=== PATIENT | male | born 1990 | race Hispanic/Latino ===

== ENCOUNTER 2022-01-13 00:11 | Emergency (ER) | payer SELFPAY ==
[2022-01-13] MEDS ORDERED: THIAMINE 200 MG/2 ML INJ ONE (01:49)
[2022-01-13] MEDS ORDERED: ONDANSETRON 4 MG/2 ML VIAL ONE (01:50)
[2022-01-13] MEDS ORDERED: MULTIVITAMINS 10 ML VIAL (INJ) IV ONE (01:50)
[2022-01-13] MEDS ORDERED: MORPHINE 4 MG/ML SYR ONE (01:50)
[2022-01-13] MEDS ORDERED: FOLIC ACID 5 MG/ML VIAL ONE (01:51)
[2022-01-13] MEDS ORDERED: NA CHLORIDE 0.9% 1,000 ML ONE (01:51)
[2022-01-13 02:20] LABS: Absolute Lymphocytes (CBC) 2.7 K/uL (0.7-4.9); Hematocrit 52.4 % (39.6-49.0); Lymphocytes % 22.8 % (15.3-44.8); MPV 8.1 fL (7.6-11.3); RBC Red Blood Cell Count 5.74 M/uL (4.33-5.43)
[2022-01-13 02:24] LABS: Protime INR 1.04
[2022-01-13 02:40] LABS: Albumin 4.6 g/dL (3.4-5.0); Bilirubin Direct 0.2 mg/dL (0-0.2); Bilirubin Total 0.9 mg/dL (0.2-1.0); Magnesium 2.2 mg/dL (1.8-2.4); Potassium 4.5 mmol/L (3.5-5.1); Protein, Total 8.7 g/dL (6.4-8.2); Troponin High Sensitivity 9.5 pg/mL (<58.9)
[2022-01-13 03:34] LABS: Barbiturates NEGATIVE (NEGATIVE); Benzodiazepines NEGATIVE (NEGATIVE); Cocaine ND (NEGATIVE); METHAMPHETAM NEGATIVE (NEGATIVE); Methadone NEGATIVE (NEGATIVE); Opiates POSITIVE (NEGATIVE); Phencyclidine NEGATIVE (NEGATIVE); THC Cannibis POSITIVE (NEGATIVE)
--- NOTE | 2022-01-13 05:46 | EDPHYS ---
Physician Documentation [facility] Name: Jairon Anderson Age: 31 yrs Sex: Male : 1990 Arrival Date: 01/13/2022 Time: 00:23 Bed 17 Private MD: ED Physician Roby Delgado HPI: 01/13 00:50 This 31 yrs old Male presents to ER via EMS with complaints of Abdominal mh7 pain.Constipation. 00:50 The patient presents with abdominal pain in the left upper quadrant, in the left lower mh7 quadrant. Onset: The symptoms/episode began/occurred 2 day(s) ago. The symptoms do not radiate. 00:50 Associated signs and symptoms: Pertinent positives: constipation, Pertinent negatives: mh7 nausea, vomiting, and diarrhea, anorexia, blood in stools, chest pain, diarrhea, dysuria, fever, headache, hematuria, nausea, palpitations, shortness of breath, testicular pain, vomiting, vomiting blood. 00:50 The symptoms are described as intermittent, vague, waxing/waning. Modifying factors: mh7 The symptoms are alleviated by nothing, the symptoms are aggravated by nothing. Severity of pain: At its worst the pain was moderate yesterday, in the emergency department the pain is unchanged. Historical: - Allergies: 00:27 Tylenol; vc1 00:27 Ibuprofen; vc1 - Home Meds: 00:27 None [Active]; vc1 - PMHx: 00:27 Hypertensive disorder; Asthma; Bipolar disorder; ADHD; vc1 - Immunization history:: Adult Immunizations unknown, Client reports having NOT received the Covid vaccine. ROS: 00:50 Constitutional: Negative for fever, chills, and weight loss, Eyes: Negative for injury, mh7 pain, redness, and discharge, ENT: Negative for injury, pain, and discharge, Neck: Negative for injury, pain, and swelling, Cardiovascular: Negative for chest pain, palpitations, and edema, Respiratory: Negative for shortness of breath, cough, wheezing, and pleuritic chest pain, Back: Negative for injury and pain, : Negative for injury, bleeding, discharge, and swelling, MS/Extremity: Negative for injury and deformity, Skin: Negative for injury, rash, and discoloration, Neuro: Negative for headache, weakness, numbness, tingling, and seizure, Psych: Negative for depression, anxiety, suicide ideation, homicidal ideation, and hallucinations, Allergy/Immunology: Negative for hives, rash, and allergies, Endocrine: Negative for neck swelling, polydipsia, polyuria, polyphagia, and marked weight changes, Hematologic/Lymphatic: Negative for swollen nodes, abnormal bleeding, and unusual bruising. Exam: 00:50 Head/Face: Normocephalic, atraumatic. Eyes: Pupils equal round and reactive to light, mh7 extra-ocular motions intact. Lids and lashes normal. Conjunctiva and sclera are non-icteric and not injected. Cornea within normal limits. Periorbital areas with no swelling, redness, or edema. Neck: Trachea midline, no thyromegaly or masses palpated, and no cervical lymphadenopathy. Supple, full range of motion without nuchal rigidity, or vertebral point tenderness. No Meningismus. Chest/axilla: Normal chest wall appearance and motion. Nontender with no deformity. No lesions are appreciated. Respiratory: Lungs have equal breath sounds bilaterally, clear to auscultation and percussion. No rales, rhonchi or wheezes noted. No increased work of breathing, no retractions or nasal flaring. 00:50 Back: No spinal tenderness. No costovertebral tenderness. Full range of motion. Skin: Warm, dry with normal turgor. Normal color with no rashes, no lesions, and no evidence of cellulitis. MS/ Extremity: Pulses equal, no cyanosis. Neurovascular intact. Full, normal range of motion. Neuro: Awake and alert, GCS 15, oriented to person, place, time, and situation. Cranial nerves II-XII grossly intact. Motor strength 5/5 in all extremities. Sensory grossly intact. Cerebellar exam normal. Normal gait. Psych: Awake, alert, with orientation to person, place and time. Behavior, mood, and affect are within normal limits. 00:50 Constitutional: The patient appears in no acute distress, alert, awake, anxious. 00:50 Cardiovascular: Rate: tachycardic, Rhythm: regular, Pulses: no pulse deficits are appreciated, Heart sounds: normal, normal S1and S2, Edema: is not appreciated, JVD: is not appreciated. 00:50 Abdomen/GI: Inspection: abdomen appears normal, Bowel sounds: normal, in all quadrants, Palpation: moderate abdominal tenderness, in the left upper quadrant, mass, is not appreciated, rebound tenderness, is not appreciated, voluntary guarding, is not appreciated, involuntary guarding, is not appreciated, no appreciated organomegaly, Rectal exam: the exam is deferred, because of patient request, Indicators: McBurney's point is not tender, Parks's sign is negative, Rovsing's sign is negative, Obturator sign is negative, Psoas sign is negative, Liver: no appreciated palpable abnormalities, Hernia: not appreciated. Vital Signs: 00:26 BP 159 / 123; Pulse 112; Resp 18; Temp 98.5; Pulse Ox 100% ; Weight 74.84 kg; Height 5 vc1 ft. 4 in. (162.56 cm); Pain 6/10; 01:00 BP 164 / 133; Pulse 93; Resp 18; Pulse Ox 97% ; vc1 02:00 BP 177 / 125; Pulse 104; Resp 20; Pulse Ox 98% ; vc1 02:53 BP 164 / 109; Pulse 105; Resp 17; Pulse Ox 97% on R/A; ll3 04:00 BP 143 / 105; Pulse 80; Resp 20; Pulse Ox 98% ; vc1 05:00 BP 138 / 110; Pulse 78; Resp 24; Pulse Ox 97% ; vc1 05:51 BP 157 / 110; Pulse 77; Resp 20; Pulse Ox 98% ; vc1 00:26 Body Mass Index 28.32 (74.84 kg, 162.56 cm) vc1 MDM: 05:44 Differential diagnosis: bowel obstruction, diverticulitis, gastritis, gastroesophageal mh7 reflux disease, non-specific abd pain, Peptic Ulcer Disease, Pyelonephritis, Ureterolithiasis. Data reviewed: vital signs, nurses notes, lab test result(s), CBC, electrolytes, urinalysis, EKG, radiologic studies, CT scan, plain films. Data interpreted: Pulse oximetry: on room air is 97 %. Interpretation: normal. Counseling: I had a detailed discussion with the patient and/or guardian regarding: the historical points, exam findings, and any diagnostic results supporting the discharge/admit diagnosis, the presence of at least one elevated blood pressure reading (>120/80) during this emergency department visit, lab results, radiology results, the need for outpatient follow up, to return to the emergency department if symptoms worsen or persist or if there are any questions or concerns that arise at home. Response to treatment: the patient's symptoms have resolved after treatment, the patient's blood pressure is in an acceptable range, mental status has returned to baseline, the patient no longer shows bradycardia, the patient is not short of breath, the patient is not tachycardic, the patient's pain is gone, the patient's temperature has normalized, the patient is now symptom free, patient is well hydrated. 05:45 Patient medically screened. 01/13 01:01 Order name: Basic Metabolic Panel; Complete Time: 02:48 01/13 01:01 Order name: CBC with Diff; Complete Time: 02:48 01/13 01:01 Order name: LFT's; Complete Time: 02:48 01/13 01:01 Order name: Magnesium; Complete Time: 02:48 01/13 01:01 Order name: NT PRO-BNP; Complete Time: 02:48 01/13 01:01 Order name: PT-INR; Complete Time: 02:48 01/13 01:01 Order name: Troponin HS; Complete Time: 02:48 01/13 01:01 Order name: XRAY Chest (1 view) 01/13 01:01 Order name: Lipase; Complete Time: 02:48 01/13 01:01 Order name: COVID-19 SARS RT PCR (Document "Date of Onset" if Symptomatic); Complete [facility] Time: 05:01/13 01:01 Order name: Influenza Screen (a \\T\\ B); Complete Time: 05:38 01/13 01:01 Order name: ETOH Level; Complete Time: 02:48 01/13 01:01 Order name: UDS; Complete Time: 05:09 01/13 02:49 Order name: CT Abd/Pelvis - Without Contrast 01/13 01:01 Order name: EKG; Complete Time: 01:02 01/13 01:01 Order name: Cardiac monitoring; Complete Time: 02:12 01/13 01:01 Order name: EKG - Nurse/Tech; Complete Time: 02:12 01/13 01:01 Order name: IV Saline Lock; Complete Time: 02:12 01/13 01:01 Order name: Labs collected and sent; Complete Time: 02:12 [facility] 01/13 01:01 Order name: O2 Per Protocol; Complete Time: 02:12 [facility] 01/13 01:01 Order name: O2 Sat Monitoring; Complete Time: 02:12 [facility] 01/13 01:01 Order name: Urine Dipstick-Ancillary (obtain specimen); Complete Time: 03:14 [facility] Administered Medications: 02:11 Drug: Banana Bag - (NS 0.9% 1000 ml, foLIC Acid 1 mg, Thiamine 100 mg, Multivitamin 1 vc1 amp) Route: IV; Rate: calculated rate; Site: right antecubital; 02:11 Drug: morphine 4 mg Route: IVP; Infused Over: 4 mins; Site: right antecubital; vc1 02:11 Drug: Zofran (Ondansetron) 4 mg Route: IVP; Site: right antecubital; vc1 Disposition Summary: 01/13/22 05:45 Discharge Ordered Location: Home [facility] Problem: new [facility] Symptoms: have improved [facility] Condition: Stable [facility] Diagnosis - Abdominal pain, Generalized 7 Followup: [facility] - With: Private Physician - When: 1 - 2 days - Reason: Worsening of condition, Recheck today's complaints, Continuance of care, Re-evaluation by your physician Discharge Instructions: - Discharge Summary Sheet [facility] - Abdominal Pain, Adult, [id number] [facility] Forms: - Medication Reconciliation Form [facility] - Thank You Letter [facility] - Antibiotic Education [facility] - Prescription Opioid Use [facility] Prescriptions: - ondansetron 4 mg Oral tablet,disintegrating - place 1 tablet by TRANSLINGUAL route every 8 hours As needed; 10 tablet; 7 Refills: 0, Product Selection Permitted - Pepcid 20 mg Oral Tablet - take 1 tablet by ORAL route once daily; 20 tablet; Refills: 0, Product [facility] Selection Permitted - dicyclomine 20 mg Oral Tablet - take 1 tablet by ORAL route 4 times per day As needed; 20 tablet; Refills: 0, 7 Product Selection Permitted Signatures: Dispatcher [employer] Roby Lennon MD MD 7 Radha Duron RN RN vc1 Corrections: (The following items were deleted from the chart) 00:29 00:27 PSHx: None; vc1 vc1 01:34 01:32 This 31 yrs old Male presents to ER via EMS with complaints of Abdominal mh7 pain.Constipation. mh7
--- NOTE | 2022-01-13 05:46 | ER ---
Nurse's Notes [facility] Name: Jairon Anderson Age: 31 yrs Sex: Male : 1990 Arrival Date: 01/13/2022 Time: 00:23 Bed 17 Private MD: Diagnosis: Abdominal pain, Generalized Presentation: 01/13 00:23 Chief complaint: Patient states: "I was sitting on the toilet trying to go [facility] and I started having really bad pain and pressure on my left side. I have a hernia on both sides so I am worried about that. I have also been drinking all week and my whole body is sore. This may be personal but I also masturbate every day, (I am waiting on my to get out of shelter) so maybe I am dehydrated.". 00:26 Coronavirus screen: Vaccine status: Patient reports being unvaccinated. At this time, 1 the client does not indicate any symptoms associated with coronavirus-19. Ebola Screen: No symptoms or risks identified at this time. Initial Sepsis Screen: Does the patient meet any 2 criteria? HR > 90 bpm. No. Patient's initial sepsis screen is negative. Does the patient have a suspected source of infection? No. Patient's initial sepsis screen is negative. Risk Assessment: Do you want to hurt yourself or someone else? Patient reports no desire to harm self or others. Onset of symptoms was January 12, 2022. 00:26 Method Of Arrival: EMS: [facility] 00:26 Acuity: SARI 3 vc1 Triage Assessment: 00:27 General: Appears in no apparent distress. Behavior is cooperative, appropriate for age. vc1 Pain: Complains of pain in left lateral anterior chest Pain does not radiate. Pain currently is 6 out of 10 on a pain scale. Neuro: Level of Consciousness is awake, alert, obeys commands, Oriented to person, place, time, situation, Appropriate for age. Cardiovascular: Capillary refill < 3 seconds Patient's skin is warm and dry. Respiratory: Airway is patent Respiratory effort is even, unlabored, Respiratory pattern is regular, symmetrical. GI: Reports upper abdominal pain, constipation. : No signs and/or symptoms were reported regarding the genitourinary system. Derm: No signs and/or symptoms reported regarding the dermatologic system. Historical: - Allergies: 00:27 Tylenol; vc1 00:27 Ibuprofen; vc1 - Home Meds: 00:27 None [Active]; vc1 - PMHx: 00:27 Hypertensive disorder; Asthma; Bipolar disorder; ADHD; vc1 - Immunization history:: Adult Immunizations unknown, Client reports having NOT received the Covid vaccine. Screenin:30 Abuse screen: Denies threats or abuse. Nutritional screening: No deficits noted. vc1 Tuberculosis screening: No symptoms or risk factors identified. Fall Risk None identified. Assessment: 00:30 Reassessment: See triage assessment. vc1 02:00 Reassessment: Patient and/or family updated on plan of care and expected duration. Pain vc1 level reassessed. Patient is alert, oriented x 3, equal unlabored respirations, skin warm/dry/pink. 03:00 Reassessment: Patient and/or family updated on plan of care and expected duration. Pain vc1 level reassessed. Patient is alert, oriented x 3, equal unlabored respirations, skin warm/dry/pink. 04:00 Reassessment: Patient and/or family updated on plan of care and expected duration. Pain vc1 level reassessed. Patient is alert, oriented x 3, equal unlabored respirations, skin warm/dry/pink. 05:00 Reassessment: Patient and/or family updated on plan of care and expected duration. Pain vc1 level reassessed. Patient is alert, oriented x 3, equal unlabored respirations, skin warm/dry/pink. Patient states feeling better. Patient states symptoms have improved. 05:53 Reassessment: Patient and/or family updated on plan of care and expected duration. Pain vc1 level reassessed. Patient is alert, oriented x 3, equal unlabored respirations, skin warm/dry/pink. Patient states feeling better. Patient states symptoms have improved. Vital Signs: 00:26 BP 159 / 123; Pulse 112; Resp 18; Temp 98.5; Pulse Ox 100% ; Weight 74.84 kg; Height 5 vc1 ft. 4 in. (162.56 cm); Pain 6/10; 01:00 BP 164 / 133; Pulse 93; Resp 18; Pulse Ox 97% ; vc1 02:00 BP 177 / 125; Pulse 104; Resp 20; Pulse Ox 98% ; vc1 02:53 BP 164 / 109; Pulse 105; Resp 17; Pulse Ox 97% on R/A; ll3 04:00 BP 143 / 105; Pulse 80; Resp 20; Pulse Ox 98% ; vc1 05:00 BP 138 / 110; Pulse 78; Resp 24; Pulse Ox 97% ; vc1 05:51 BP 157 / 110; Pulse 77; Resp 20; Pulse Ox 98% ; vc1 00:26 Body Mass Index 28.32 (74.84 kg, 162.56 cm) vc1 ED Course: 00:23 Patient arrived in ED. vc1 00:23 Radha Duron, LENNOX is Primary Nurse. vc1 00:25 Roby Delgado MD is Attending Physician. 7 00:27 Triage completed. vc1 00:30 Arm band placed on right wrist. vc1 00:30 Patient has correct armband on for positive identification. Bed in low position. Client vc1 placed on continuous cardiac and pulse oximetry monitoring. NIBP monitoring applied. 01:48 XRAY Chest (1 view) In Process Unspecified. EDMS 03:44 CT Abd/Pelvis - Without Contrast In Process Unspecified. EDMS 05:52 No provider procedures requiring assistance completed. vc1 06:07 IV discontinued, intact, bleeding controlled, No redness/swelling at site. Pressure vc1 dressing applied. Administered Medications: 02:11 Drug: Banana Bag - (NS 0.9% 1000 ml, foLIC Acid 1 mg, Thiamine 100 mg, Multivitamin 1 vc1 amp) Route: IV; Rate: calculated rate; Site: right antecubital; 02:11 Drug: morphine 4 mg Route: IVP; Infused Over: 4 mins; Site: right antecubital; vc1 02:11 Drug: Zofran (Ondansetron) 4 mg Route: IVP; Site: right antecubital; vc1 Medication: 05:53 VIS not applicable for this client. vc1 Outcome: 05:45 Discharge ordered by . [facility] 06:06 Discharged to home ambulatory. vc1 06:06 Condition: good 06:06 Condition: good 06:06 Discharge instructions given to patient, Instructed on discharge instructions, follow up and referral plans. medication usage, Demonstrated understanding of instructions, follow-up care, medications, Prescriptions given X 3. 06:07 Patient left the ED. vc1 Signatures: Dispatcher [employer] EDMS Roby Delgado MD MD mh7 Riccardo Jacobs RN RN ll3 Radha Duron RN RN vc1 Corrections: (The following items were deleted from the chart) 00:29 00:27 PSHx: None; vc1 vc1
[2022-01-13 06:26] VITALS: TEMP 98.5
[2022-01-13 06:35] VITALS: BP 157/110; O2SAT 98
--- NOTE | 2022-01-15 14:59 | RAD REPORT ---
EXAM DESCRIPTION: RAD - Chest Single View - 01/13/2022 1:46 am CLINICAL HISTORY: 31 years, Male, CHEST PAIN COMPARISON: None. FINDINGS: Single view of the chest was obtained portable. No prior films are available for compariso n. The cardiomediastinal silhouette demonstrate to be unremarkable. The heart is not enlarged. The thoracic aorta is unremarkable. Costophrenic angles are sharp. No areas of consolidation or masses are seen. There is deformity of the lateral left rib/rib cage corresponding to old healed fractures. The rest of the soft tissue and bony structures demonstrate to be unremarkable. IMPRESSION: No acute cardiopulmonary process identified. Electronically signed by: Ernesto Alonso MD 01/13/2022 2:30 AM CDT Due to temporary technical issues with the PACS/Fluency reporting system, reports are being signed by the in house radiologists without review as a courtesy to insure prompt reporting. The interpreting radiologist is fully responsible for the content of the report.
--- NOTE | 2022-01-15 15:07 | RAD REPORT ---
EXAM DESCRIPTION: CT - Abdomen Pelvis Wo Contrast - 01/13/2022 6:44 am CLINICAL HISTORY: Abdominal pain, acute, nonlocalized COMPARISON: None. TECHNIQUE: CT ABDOMEN PELVIS WITHOUT IV CONTRAST on 01/13/2022 2:49 AM CDT This exam was performed according to our departmental dose-optimization program, which includes autom ated exposure control, adjustment of the mA and/or kV according to patient size and/or use of iterati ve reconstruction technique. FINDINGS: Lower lungs are clear. Abdomen: Liver is diffusely fatty in attenuation. There is no biliary dilatation. Gallbladder is norm ally distended. The pancreas and spleen are normal in appearance. The adrenal glands and kidneys are unremarkable. Abdominal aorta is normal in course and caliber without aneurysm. There is no free air. There is no r etroperitoneal adenopathy. Pelvis: There is no bowel obstruction. Urinary bladder is unremarkable. There is no free fluid. There are small fat-containing inguinal hernias. Appendix is normal. Skeleton: There are no acute osseous findings. No suspicious bony lesions. IMPRESSION: No definite acute inflammatory process. Electronically signed by: Kerwin Garza MD 01/13/2022 5:00 AM CDT Due to temporary technical issues with the PACS/Fluency reporting system, reports are being signed by the in house radiologists without review as a courtesy to insure prompt reporting. The interpreting radiologist is fully responsible for the content of the report.
--- NOTE | 2022-01-17 07:57 | EKG ---
Test Date: 2022-01-13 Test Time: 00:14:46 Unbundler: LADONNA MEASUREMENT RESULTS: Intervals: Rate: 113 CT: 120 QRSD: 80 QT: 306 QTc: 419 [place]: P: 56 CT: 120 QRS: 70 T: 30 INTERPRETIVE STATEMENTS: Sinus tachycardia Otherwise normal ECG No previous ECG available for comparison Electronically Signed On 01-17-22 07:50:58 CDT by Les Nolen
== END 2022-01-13 06:07 | disposition home or self-care (01) ==
LOC: ER 00:11
DX: R10.84 Generalized abdominal pain (principal); K59.00 Constipation, unspecified; I10 Essential (primary) hypertension; Z88.6 Allergy status to analgesic agent
CPT/HCPCS: 36415; 71045; 74176; 80048; 80076; 80307; 80320; 83690; 83735; 83880; 84484; 85025; 85610; 87804; 93005; 96374; 96375; 99284; J2405; J3411; J7030; U0003